=== PATIENT | male | born 1980 | race Caucasian/White ===

== ENCOUNTER 2018-08-28 13:54 | Inpatient (IN) | END 2018-08-31 18:20 | disposition home or self-care (01) | DRG 292 ==

== ENCOUNTER 2018-09-14 08:12 | Inpatient (IN) | END 2018-09-15 15:32 | disposition home or self-care (01) | DRG 292 ==

== ENCOUNTER 2019-02-08 05:05 | Emergency (ER) | payer OTHER ==
[~2019-02-08] VITALS: Ht 190.5 cm; Wt 128.0 kg
[~2019-02-08 05:05] MED LIST: AZIT600T4 PO; CARV12.579 PO; DOCU-144 PO; ELVI1TAB2 PO; FER325 PO; FURO40TA4 PO; LISI10TA2 PO; LORA1TAB PO; SPIR25TA PO; SULF1TAB31 PO
[2019-02-08 05:18] VITALS: Ht 190.5 cm; Wt 128.0 kg
--- NOTE | 2019-02-08 06:25 | ERD ---
ER Documentation Chief Complaint Chief Complaint bib self, cc: swelling of legs for 2 days, and sob upon exertion HPI This is a 38-year-old man complaining of recent peripheral edema despite using his Lasix as prescribed. Patient has a history of CHF with LVEF of about 25 to 30%. Patient denies orthopnea and minimal dyspnea on exertion, no shortness of breath at rest, no chest pain, no cough, no fevers or chills, no headache or blurry vision. Patient states he feels anxious as well. ROS All systems reviewed and are negative except as per history of present illness. Medications Home Meds Reported Medications Azithromycin* (Azithromycin*) 600 Mg Tablet, 600 MG PO TWICE A WEEK, TAB 09/14/18 Sulfamethoxazole/Trimethoprim* (Bactrim Ds* Tablet) 1 Each Tablet, 1 TAB PO MONWEDFRI, TAB 09/14/18 Elvitegr/Cobicist/Emtric/Tenof (STRIBILD TABLET) 1 Each Tablet, 1 EACH PO DAILY, TAB 09/14/18 Spironolactone* (Aldactone*) 25 Mg Tablet, 12.5 MG PO DAILY, #30 TAB 09/14/18 Lisinopril* (Lisinopril*) 10 Mg Tablet, 10 MG PO DAILY, #30 TAB 09/14/18 Furosemide* (Furosemide*) 40 Mg Tablet, 40 MG PO DAILY, TAB 09/14/18 Carvedilol* (Carvedilol*) 12.5 Mg Tablet, 12.5 MG PO BID, #60 TAB 09/14/18 Lorazepam* (Lorazepam*) 1 Mg Tablet, 1 MG PO HS PRN for ANXIETY, #30 TAB 08/28/18 Ferrous Sulfate* (Ferrous Sulfate*) 325 Mg Tabec, 325 MG PO BID, TAB 08/28/18 Docusate Sodium* (Colace*) 100 Mg Capsule, 100 MG PO BID, #60 CAP 08/28/18 Allergies Allergies: Coded Allergies: clindamycin (Verified Allergy, Intermediate, RASH, 09/14/18) PMhx/Soc hypertension, dyslipidemia, history of cardiomyopathy with LVEF of 25%, drug abuse, substance abuse, HIV, lymphoma History of Surgery: Yes (REVISION OF COLOSTOMY 04/08) Anesthesia Reaction: No Hx Neurological Disorder: No Hx Respiratory Disorders: Yes (CHF) Hx Cardiac Disorders: Yes (CHF) Hx Psychiatric Problems: No Hx Miscellaneous Medical Probl: No Hx Alcohol Use: Yes Hx Substance Use: Yes Hx Tobacco Use: Yes Smoking Status: Former smoker FmHx Family History: No diabetes Physical Exam Vitals Vital Signs Date Temp Pulse Resp B/P (MAP) Pulse Ox O2 O2 Flow FiO2 Time Delivery Rate 02/08/19 98.2 109 19 121/87 99 06:56 (98) 02/08/19 98.7 110 19 128/84 98 05:18 (99) Physical Exam GENERAL: Well-developed, well-nourished, well-hydrated, in no apparent distress, looks nontoxic in appearance, afebrile CARDIAC: Regular rate and rhythm, no murmurs rubs or gallops LUNGS: Clear bilaterally no wheezing crackles or stridor ABDOMEN: Soft nontender, no guarding, no rigidity, no rebound, no psoas sign no obturator sign. SKIN: Warm and dry to touch, no abrasions, contusions, or hematomas, no lacerations, no ecchymosis, no target lesions, and without ulcers EXTREMITIES: No clubbing cyanosis, 3+ pitting edema in the lower extremities bilaterally calves are bilaterally symmetrical, no Homans sign, no popliteal cord sign. Distal pulses equal and bilateral PSYCH: Normal affect without agitation or irritability Results 24 hrs Current Medications Medications Dose Sig/Rosanna Start Time Status Last (Trade) Ordered Route PRN Stop Time Admin Dose Reason Admin Furosemide 40 mg ONCE ONCE 02/08/19 DC 02/08/19 (Lasix) PO 06:30 06:55 02/08/19 06:31 Procedures/MDM IV line was established patient was placed on cardiac care nurse rhythm strip revealed a narrow complex tachycardia at 110 bpm with upright P and T waves. Patient was afebrile EKG was performed, read by me revealed a sinus tachycardia at 107 bpm, left axis deviation, right ventricular conduction delay QRS duration 100 ms, no concerning ST elevations or depressions noted I administered furosemide 40 mg p.o. x1. 1 view chest x-ray performed, read by me revealed cardiomegaly and mild congestion bilaterally, no acute infiltrates, no pneumothorax. Patient has very mild symptoms and clear lung sounds on examination, he does not appear dyspneic or tachypneic. I recommended daily exercise and strict Lasix compliance. Patient also had recent bilateral lower extremity ultrasound which was negative for DVTs. Differential diagnoses considered, included but not limited to acute coronary syndrome, pulmonary embolism, aortic dissection, abdominal aortic aneurysm, sepsis, stroke, meningitis, encephalitis, pneumonia, appendicitis, cholecystitis, bowel obstruction, pyelonephritis, nephrolithiasis, cystitis, as well as metabolic, hematologic, and electrolyte abnormalities. As well as abscess, cellulitis, fractures, and dislocations. Patient feels much better at this time, and vital signs are normal, symptoms have improved. I did give strict instructions to return to the ED if symptoms continue or worsen, patient will otherwise follow-up with primary care physician. Patient understood instructions and agreed to plan. Disclaimer: Inadvertent spelling and grammatical errors are likely due to EHR/dictation software use and do not reflect on the overall quality of patient care. Also, please note that the electronic time recorded on this note does not necessarily reflect the actual time of the patient encounter. Departure Diagnosis: Primary Impression: CHF (congestive heart failure) Heart failure type: combined systolic and diastolic Heart failure chronicity: acute Qualified Codes: I50.41 - Acute combined systolic (congestive) and diastolic (congestive) heart failure Condition: OCTAVIO Blood MD February 08, 2019 06:25
[2019-02-08] MEDS ORDERED: FUROSEMIDE 20 MG TAB PO ONE (06:30)
[2019-02-08] MEDS ORDERED: POTA8CAP PO (07:18)
[2019-02-08] MEDS ORDERED: DOCU-216 ORAL (07:18)
[2019-02-08 08:30] VITALS: BP 126/93; PULSE 104; RESP 19
== END 2019-02-08 08:30 | disposition home or self-care (01) ==
LOC: FTE 05:05 → E/R 08:30
DX: I50.41 Acute combined systolic (congestive) and diastolic (congestive) heart failure (principal); I10 Essential (primary) hypertension
CPT/HCPCS: 71045; 93005; Z7502; Z7610